=== PATIENT | male | born 2005 | race Two or more races ===

== ENCOUNTER 2025-01-31 17:53 | Emergency (ER) | payer BC, OTHER ==
[~2025-01-31] VITALS: Ht 177.8 cm; Wt 68.6 kg
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
--- NOTE | 2025-01-31 18:52 | DVH ---
EXAM: CT HEAD WITHOUT CONTRAST INDICATION: LOC TECHNIQUE: CT of the head without intravenous contrast. Radiation Dose Information: CT Dose: CTDI volume is 56.02 mGy. Dose-length product is 898.04 mGy*cm The dose indicators for CT are the volume Computed Tomography (CT) Dose Index (CTDIvol) and the Dose Length Product (DLP), and are measured in units of mGy and mGy-cm, respectively. These indicators are not patient dose, but values generated from the CT scanner acquisition factors. The report includes radiation exposure data for exposures received during this examination. COMPARISON: None FINDINGS: There is no evidence of acute intracranial hemorrhage, extra-axial collection, mass effect, midline s hift, herniation or hydrocephalus. The ventricles, sulci and cisterns are age appropriate. The armendariz-white differentiation is intact. Patchy periventricular and subcortical white matter hypoattenuation is nonspecific but may be related to small vessel ischemic disease. The visualized paranasal sinuses and mastoid air cells are clear. The surrounding soft tissues and osseous structures are unremarkable. IMPRESSION: 1. No acute intracranial abnormality. 2. No CT findings of territorial ischemia. 3. No CT findings of acute intracranial hemorrhage.
--- NOTE | 2025-01-31 18:52 | DVH ---
CLINICAL INDICATION: LEFT HIP PAIN TECHNIQUE: 3 radiographic views of the left hip were obtained. Comparison: None FINDINGS/IMPRESSION: There is no evidence of acute fracture or dislocation. The visualized joint space is well maintained. The alignment is anatomical. There is no radiopaque foreign body.
[2025-01-31 18:54] LABS: Basophils # (auto) 0 10 ^3/uL (0-0.2); Basophils % (auto) 0.1 % (0.0-2.0); Eosinophils # (auto) 0 10 ^3/uL (0-0.8); Eosinophils % (auto) 0.2 % (0.0-7.0); Hemoglobin 15.6 g/dL (13.5-17.5); Lymphocytes # (auto) 0.5 10 ^3/uL (0.4-5.4); Lymphocytes % (auto) 3.5 % (10.0-50.0); Mean Corpuscular Hemoglobin 29.4 pg (28.0-32.0); Mean Corpuscular Hgb Conc. 34.6 g/dL (32.0-36.0); Mean Corpuscular Volume 84.9 fL (80.0-100.0); Monocytes # (auto) 1.2 10 ^3/uL (0-1.3); Monocytes % (auto) 7.4 % (0.0-12.0); Neutrophils % (auto) 88.8 % (37.0-80.0); Nucleated Red Blood Cells % 0.1 %; Platelet Count (auto) 224 10^3/uL (140-450); Red Blood Cells 5.31 10^6/uL (4.5-5.90); Red Cell Distribution Width 12.8 % (11.8-14.3); White Blood Cell 15.7 10^3/uL (4.4-10.8)
[2025-01-31 19:06] LABS: Chloride 107 mmol/L (98-107); Potassium 3.5 mmol/L (3.5-5.1); Sodium 140 mmol/L (136-145)
[2025-01-31 19:07] LABS: Anion Gap 8 (5-15); Calcium 9.8 mg/dL (8.7-10.4); Carbon Dioxide 25 mmol/L (20-31)
[2025-01-31 19:12] LABS: BUN/Creatinine Ratio 14.4 (10.0-20.0); Blood Urea Nitrogen 13 mg/dL (9-23); Glucose 123 mg/dL (74-106)
[2025-01-31 19:42] VITALS: TEMP 98.7
[2025-01-31 19:59] VITALS: PULSE 94; RESP 10; O2SAT 98
[2025-01-31] MEDS: ACETAMINOPHEN 325 MG TAB PO ONE (20:57)
[2025-01-31 21:01] VITALS: BP 116/72; PULSE 114; RESP 18; O2SAT 98
== END 2025-01-31 23:12 | disposition home or self-care (01) ==
LOC: ER 17:53
DX: S06.0XAA Concussion with loss of consciousness status unknown, initial encounter (principal); S40.812A Abrasion of left upper arm, initial encounter; R41.2 Retrograde amnesia; Z98.890 Other specified postprocedural states; V89.2XXA Person injured in unspecified motor-vehicle accident, traffic, initial encounter; Y93.89 Activity, other specified; Y92.89 Other specified places as the place of occurrence of the external cause; Y99.8 Other external cause status
CPT/HCPCS: 36415; 70450; 73502; 80048; 85025